=== PATIENT | female | born 1950 | race Caucasian/White ===

== ENCOUNTER 2020-10-21 18:53 | Inpatient (IN) | payer MEDICARE ==
[~2020-10-21] VITALS: Ht 160 cm; Wt 54.4 kg
--- NOTE | 2020-10-21 19:00 | NUR ---
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
--- NOTE | 2020-10-21 19:30 | NUR ---
Report recieved from flora Cruz. Pt. resting in bed comfortably. Pt aox4. cc sob, improved w/ repositioning. No chest pain. Pt spo2 95 RA.
[2020-10-21 20:06] LABS: HEMATOCRIT 34.2 % (31.2-41.9); MEAN CORPUSCULAR HEMOGLOBIN 33.4 uug (24.7-32.8); MEAN CORPUSCULAR VOLUME 100.6 fL (75.5-95.3); PLATELET COUNT (AUTO) 176 K/uL (179-408)
[2020-10-21 20:11] LABS: CREATININE 1.3 mg/dL (0.6-1.3); POTASSIUM 4.4 mmol/L (3.5-5.1)
[2020-10-21 20:18] LABS: BILIRUBIN,TOTAL 0.7 mg/dL (0.2-1.0); TOTAL PROTEIN, SERUM 7.4 g/dL (6.4-8.2)
[2020-10-21] MEDS ORDERED: CEFTRIAXONE 1 G in IV DEXTROSE 5% 50 ML IV ONE (20:45)
[2020-10-21] MEDS ORDERED: DOXYCYCLINE HYCLATE IV 100 MG in IV DEXTROSE 5% 100 ML IV ONE (20:45)
[2020-10-21] MEDS ORDERED: IV NORMAL SALINE 250 ML IV ONE (20:55)
[2020-10-21] MEDS ORDERED: IOHEXOL 350 100 ML INFUS..BTL ONE (20:55)
[2020-10-21] MEDS ORDERED: SWABABLE VALVE TRANSFER SET EA MC ONE (20:55)
--- NOTE | 2020-10-21 21:44 | NUR ---
Pt to be admitted per Dr. Rashid. Called [facility], waiting for return call.
[2020-10-21] MEDS ORDERED: CEFTRIAXONE /D5W 50ML IVPB **ER PYXIS IV ONE (21:58)
[2020-10-21] MEDS ORDERED: DOXYCYCLINE HYCLATE 100 MG INJ IV ONE (21:58)
[2020-10-21] MEDS ORDERED: Z GUARD REMEDY PASTE 57 GM TUBE TOP PRN (22:00)
[2020-10-21] MEDS ORDERED: ONDANSETRON 4 MG/2 ML VIAL IV PRN (22:00)
[2020-10-21] MEDS ORDERED: ASPIRIN 81 MG TAB.CHEW PO ONE (22:00)
[2020-10-21] MEDS ORDERED: ACETAMINOPHEN 325 MG TABLET PO PRN (22:00)
[2020-10-21] MEDS ORDERED: MAGNESIUM HYDROXIDE 30 ML LIQUID UDC PO PRN (22:00)
[2020-10-21] MEDS ORDERED: IV NS 1000 ML 1,000 ML IV ONE (22:15)
[2020-10-21] MEDS ORDERED: levoFLOXacin 500 MG/D5W 500 MG in PREMIXED 1 EACH IV SCH (22:45)
[2020-10-21] MEDS ORDERED: HEPARIN/D5W DRIP 500 ML IV STA (22:58)
[2020-10-21] MEDS ORDERED: HEPARIN SODIUM,PORCINE/PF 100 UNIT/ML, 5ML SYR XX ONE (23:00)
[2020-10-21] MEDS ORDERED: ATORVASTATIN 40 MG TABLET PO SCH (23:00)
[2020-10-21] MEDS ORDERED: FUROSEMIDE 40 MG/4 ML VIAL IV SCH (23:15)
[2020-10-21] MEDS ORDERED: ASPIRIN 81 MG TAB.CHEW ONE (23:15)
[2020-10-21] MEDS ORDERED: HEPARIN SODIUM,PORCINE 5,000 UNITS/ML VIAL ONE (23:15)
[2020-10-21] MEDS ORDERED: HEPARIN/D5W DRIP 500 ML ONE (23:16)
[2020-10-21] MEDS ORDERED: ALPRAZOLAM 0.5 MG TABLET ONE (23:32)
[2020-10-21] MEDS ORDERED: FUROSEMIDE 40 MG/4 ML VIAL ONE (23:37)
[2020-10-21] MEDS ORDERED: ATORVASTATIN 40 MG TABLET ONE (23:37)
--- NOTE | 2020-10-22 01:00 | NUR ---
Assisted pt. to use commode. Repositioned pt, offered comfort measures and food. Pt is 93% on RA, put pt on 1 L nc, pt is 99% now. Pt states sob has improved and she is feeling better. NAD. Will continue to monitor.
--- NOTE | 2020-10-22 02:09 | NUR ---
Report given to TELLO Burt. Pt. to go to room 1B. Levaquin IV and NS to be started in ER and run on floor, endorsed to [place].
[2020-10-22] MEDS ORDERED: levoFLOXacin 500 MG/D5W 100 ML ONE (02:47)
--- NOTE | 2020-10-22 04:40 | NUR ---
Letha and SEKOU d/cd by Dr. Glass.
--- NOTE | 2020-10-22 05:21 | NUR ---
ADMITTED THIS 70 Y.O. LADY FROM ER VIA [facility]ARS,ACCOMPANIED BY ER NURSE,ABLE TO AMBULATE TO BR WITH ASSIST,WITH COMPLAINTS OF SOB X 2 MONTHS,HAS HAD COMPREHENSIVE MEDICAL HISTORY.ALERT AND ORIENTEDX4,ON TELE-SINUS R,HISTORY OF CHF,ANXIETY AND AFIB.ON HEPARIN DRIP, NO BLEEDING NOTED.
[2020-10-22 05:45] VITALS: BP 130/61
[2020-10-22 06:17] LABS: HEMATOCRIT 35.3 % (31.2-41.9); MEAN CORPUSCULAR HEMOGLOBIN 33.3 uug (24.7-32.8); MEAN CORPUSCULAR VOLUME 103.1 fL (75.5-95.3); PLATELET COUNT (AUTO) 179 K/uL (179-408)
[2020-10-22 06:37] LABS: CREATININE 1.3 mg/dL (0.6-1.3); PHOSPHOROUS 4.9 mg/dL (2.5-4.9); POTASSIUM 4.2 mmol/L (3.5-5.1)
--- NOTE | 2020-10-22 06:40 | NUR ---
TEXTED DR. IRAHETA FOR MRI APPROVAL.
[2020-10-22] MEDS ORDERED: ALPRAZOLAM 0.5 MG TABLET PO STA (06:41)
--- NOTE | 2020-10-22 07:30 | NUR ---
Received this admission 70 female with the diagnosis of NSTEMI; Acute dyspnea/CHF. Routine admission care rendered. Dr. Hanley seen patient, discussed plan of care. On Heparin drip at 818.2 units/hr at16.36 ml/hr. Waiting for repeat PTT, will monitor per protocol.
--- NOTE | 2020-10-22 07:51 | NUR ---
TROP LEVEL THIS AM 4.971, CRITICAL VALUE RELAYED TO DR. MAGUIRE AND RIKA DOSS.PT IN NO ACUTE DISTRESS.RESTING QUIETLY INBED.OXYGEN INHL AT 1L VIA NASAL CANNULA.BREATHING BETTER.HEPARIN DRIP INFUSING W/O ANY PROBLEMS.ENDORSED TO AM SHIFT IN FAIR CONDITION.
[2020-10-22 08:19] VITALS: BP 128/73
[2020-10-22] MEDS: ALPRAZOLAM 0.5 MG TABLET PO PRN ×2 (08:21→17:16)
--- NOTE | 2020-10-22 08:53 | NUR ---
Anxious, Xanax given as ordered. IVF started as ordered.
[2020-10-22] MEDS ORDERED: ASPIRIN 81 MG TAB.CHEW PO SCH (09:00)
[2020-10-22] MEDS ORDERED: METOPROLOL TARTRATE 25 MG TABLET PO SCH (09:00)
--- NOTE | 2020-10-22 10:30 | NUR ---
patient requesting to be placed onto commode, patient assisted onto commode with 1 person assist. pt had a small bm.
[2020-10-22] MEDS ORDERED: ALPR1TAB7 PO (10:55)
[2020-10-22] MEDS ORDERED: TRAZ-257 PO (10:55)
[2020-10-22] MEDS ORDERED: ATOR40TA PO ×2 (10:55→11:36)
[2020-10-22] MEDS ORDERED: APIX5TAB PO (10:55)
[2020-10-22] MEDS ORDERED: MAGN400C PO (10:55)
[2020-10-22] MEDS ORDERED: FOLI1TAB94 PO (10:55)
[2020-10-22 11:24] VITALS: BP 92/53
[2020-10-22] MEDS ORDERED: ASPI81TA31 PO (11:36)
[2020-10-22] MEDS ORDERED: ENOX60DI SQ (11:36)
[2020-10-22] MEDS ORDERED: ALPR0.5T PO (11:36)
[2020-10-22] MEDS ORDERED: METO25TA6 PO (11:36)
[2020-10-22 15:15] VITALS: BP 131/67
[2020-10-22] MEDS ORDERED: ENOXAPARIN SODIUM 60 MG/0.6 ML DISP.SYRIN SQ ONE (17:00)
--- NOTE | 2020-10-22 17:00 | NUR ---
pictures of hematoma to right and left f/a taken. patient stating feeling anxious and requesting xanax prn xanax 1mg administered. patient also assisted onto bed cervantes.
--- NOTE | 2020-10-22 18:20 | NUR ---
Report given to Radha casillas [facility]. 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
--- NOTE | 2020-10-22 19:00 | NUR ---
RECD PT IN BED, ALERT AND ORIENTED, NO ACUTE DISTRESS NOTED, RESTING QUIETLY. AWAITING TRANSFER TO [facility] ,VITAL STABLE.ON TELE SINUS R 77.
[2020-10-22 20:00] VITALS: BP 108/68
--- NOTE | 2020-10-22 20:30 | NUR ---
DISCHARGED TO [facility] VIA GURNEY, WITH [facility],REPORT GIVEN AND PT IS IN APPARENTLY FAIR CONDITION.
== END 2020-10-22 21:10 | disposition short-term general hospital (02) | DRG 280 ==
LOC: ER 18:56 → TELE3 23:55
PROVIDERS: ADMIT Nurse Practitioner Acute Care; ATTEND Nurse Practitioner Acute Care
DX: I21.4 Non-ST elevation (NSTEMI) myocardial infarction (principal); J96.00 Acute respiratory failure, unspecified whether with hypoxia or hypercapnia; J90 Pleural effusion, not elsewhere classified; I48.0 Paroxysmal atrial fibrillation; Z87.891 Personal history of nicotine dependence; Z79.01 Long term (current) use of anticoagulants; Z85.118 Personal history of other malignant neoplasm of bronchus and lung; Z90.2 Acquired absence of lung [part of]; F41.9 Anxiety disorder, unspecified; R91.8 Other nonspecific abnormal finding of lung field; Z20.822 Contact with and (suspected) exposure to COVID-19; J38.00 Paralysis of vocal cords and larynx, unspecified; Z85.830 Personal history of malignant neoplasm of bone
CPT/HCPCS: 36415; 70030-TC; 71045; 71275; 83605; 84100; 85025; 85730; 87040; 93005; 93307; A4663; G0378; J0696; J1644; J1650; J1940; J1956; J3490; J7030; J7050; J7060; Q9967